=== PATIENT | female | born 2000 | race Caucasian/White ===

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

== ENCOUNTER 2022-09-01 16:45 | Emergency (ER) | payer BC, MEDICAID, SELFPAY ==
[2022-09-01 17:00] VITALS: BP 156/84; PULSE 90; RESP 18; TEMP 36.8; O2SAT 99
--- NOTE | 2022-09-01 18:33 | W.ED.GENAD ---
Discharge Plan Disposition Patient Disposition: HOME Condition: Stable Discharge Details Clinical Impression: Spotting during in first trimester Primary Care Provider: Kusum Lizarraga ED Provider: Addie Rayo Home Meds and New Rx's Prescriptions: Continued albuterol sulfate [ProAir HFA] 90 mcg/actuation Hfa Aerosol Inhaler 2 puff Inhalation PRN PRN Discharge Instructions Instructions: (ED) Additional Instructions: Your lab tests today are reassuring. 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 Drink plenty of fluids and get plenty of rest. Return immediately to the emergency department if you develop any worsening or new concerning symptoms. Discharge Data Discharge Date/Time-TO BE ENTERED AT DEPARTURE: 09/01/22 21:02 Discharge Physician: Addie Rayo Medical Decision Making 22yo F [id number] currently 10 weeks and 3 days presents for brown vaginal spotting today. She denies any fever, vomiting or abdominal pain. Blood pressure hypertensive at 156/84 on arrival. Remainder vitals within normal limits. Patient appears comfortable and nontoxic. She reports she had an ultrasound at [facility] in the last week and was told it was unremarkable. We will attempt to obtain this report. Her abdomen is soft and nontender. Considering her recent unremarkable ultrasound and lack of abdominal pain, history and presentation does not appear consistent with ectopic . Will obtain screening labs including beta quant and discussed with OB. Case discussed with Dr. Chatterjee -- as patient is not having heavy vaginal bleeding or abdominal pain and labs are reassuring, can follow-up with her OB at [facility]. Labs reviewed. Normal white blood cell count. Normal electrolytes. Beta quant [id number]. Urinalysis notes trace ketones but no evidence of infection. Bedside ultrasound bedside ultrasound noted intrauterine with normal heart rate. Able to obtain ultrasound from [facility] from 08/26 which noted a single viable fetus of 7 weeks and 5 days with estimated due date of 04/09/2023. Patient is requesting to go home. Her blood pressure is now within normal limits at 117/64. She denies any bleeding here. She is advised to drink plenty of fluids and rest. 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 Usual and customary return precautions given prior to discharge. Medical Records Medical records reviewed: Yes I reviewed the patient's medical records. Lab Data Lab results reviewed: Yes I reviewed the patient's lab results. Labs: Laboratory Tests Range/Units 09/01/22 09/01/22 09/01/22 18:36 18:36 18:36 WBC (4.4-10.8) 10^3/uL 9.28 RBC (3.93-5.22) 10^6/uL 4.55 Hgb (11.2-15.7) g/dL 13.9 Hct (36.0-46.0) % 41.4 MCV (80-95) fL 91 MCH (27.0-33.0) pg 30.5 MCHC (32.0-36.0) % 33.6 RDW (11.7-14.6) % 11.7 Plt Count (130-400) 10^3/uL 329 MPV (8.0-11.0) fL 9.6 Immature Gran % 0.2 Neutrophils % 67.4 Lymphocytes % 26.0 Monocytes % 5.0 Eosinophils % 1.2 Basophils % 0.2 Nucleated RBC % (0.0-0.3) % 0.0 Absolute Neutrophils (1.2-6.7) 10^3/uL 6.26 Absolute Lymphocytes (1.2-3.4) 10^3/uL 2.41 Absolute Monocytes (0.1-0.8) 10^3/uL 0.46 Absolute Eosinophils (0.0-0.7) 10^3/uL 0.11 Absolute Basophils (0.0-0.2) 10^3/uL 0.02 Sodium (136-145) mmol/L 137 Potassium (3.5-5.1) mmol/L 3.6 Chloride (98-107) mmol/L 101 Carbon Dioxide (21.0-32.0) mmol/L 26.2 Anion Gap (3-11) mmol/L 9.8 BUN (7-18) mg/dL 9 Creatinine (0.55-1.02) mg/dL 0.6 Est GFR (CKD-EPI 2020) (mL/min/1.73m2) 130.07 Glucose (74-106) mg/dL 76 Calcium (8.5-10.1) mg/dL 9.6 Total Bilirubin (0.2-1.0) mg/dL 0.4 AST (15-37) U/L 12 L ALT (14-59) U/L 29 Alkaline Phosphatase (46-116) U/L 36 L Total Protein (6.4-8.2) g/dL 8.3 H Albumin (3.4-5.0) g/dL 4.0 Beta HCG, Quant (1-3) mIU/mL 20558 H Urine Color (Yellow) Urine Clarity (Clear) Urine pH (5-8) Ur Specific [place] (1.005-1.025) Urine Protein (Negative) mg/dL Urine Ketones (Negative) mg/dL Urine Blood (Negative) Urine Nitrite (Negative) Urine Bilirubin (Negative) Urine Urobilinogen (Up TO 0.2) EU/dL Ur Leukocyte Esterase (Negative) Urine Glucose (Negative) mg/dL Patient ABO/Rh A Negative Range/Units 09/01/22 19:08 WBC (4.4-10.8) 10^3/uL RBC (3.93-5.22) 10^6/uL Hgb (11.2-15.7) g/dL Hct (36.0-46.0) % MCV (80-95) fL MCH (27.0-33.0) pg MCHC (32.0-36.0) % RDW (11.7-14.6) % Plt Count (130-400) 10^3/uL MPV (8.0-11.0) fL Immature Gran % Neutrophils % Lymphocytes % Monocytes % Eosinophils % Basophils % Nucleated RBC % (0.0-0.3) % Absolute Neutrophils (1.2-6.7) 10^3/uL Absolute Lymphocytes (1.2-3.4) 10^3/uL Absolute Monocytes (0.1-0.8) 10^3/uL Absolute Eosinophils (0.0-0.7) 10^3/uL Absolute Basophils (0.0-0.2) 10^3/uL Sodium (136-145) mmol/L Potassium (3.5-5.1) mmol/L Chloride (98-107) mmol/L Carbon Dioxide (21.0-32.0) mmol/L Anion Gap (3-11) mmol/L BUN (7-18) mg/dL Creatinine (0.55-1.02) mg/dL Est GFR (CKD-EPI 2020) (mL/min/1.73m2) Glucose (74-106) mg/dL Calcium (8.5-10.1) mg/dL Total Bilirubin (0.2-1.0) mg/dL AST (15-37) U/L ALT (14-59) U/L Alkaline Phosphatase (46-116) U/L Total Protein (6.4-8.2) g/dL Albumin (3.4-5.0) g/dL Beta HCG, Quant (1-3) mIU/mL Urine Color (Yellow) Yellow Urine Clarity (Clear) Clear Urine pH (5-8) 6.0 Ur Specific [place] (1.005-1.025) >= 1.030 H Urine Protein (Negative) mg/dL Negative Urine Ketones (Negative) mg/dL Trace H Urine Blood (Negative) Negative Urine Nitrite (Negative) Negative Urine Bilirubin (Negative) Negative Urine Urobilinogen (Up TO 0.2) EU/dL 0.2 Ur Leukocyte Esterase (Negative) Negative Urine Glucose (Negative) mg/dL Negative Patient ABO/Rh HPI General Mode of arrival: ambulatory. Date/Time Provider Initiated Documentation: 09/01/22 16:54. Limitations to Documentation: no limitations. Information obtained by: patient. HPI Narrative: Patient is a 22-year-old female G3, L0 at approximately 10 weeks and 3 days presents for brown vaginal spotting today. 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 She states she had an ultrasound at [facility] last week and was told everything is fine . She denies any fever, nausea, vomiting, abdominal pain or bright red vaginal bleeding. She states she still has been sexually active. She states she has had a previous miscarriage at 8 weeks and a molar treated with D&C at 10 weeks. She states she came to this hospital because she works for [employer] and did not want to see any of my clients there. Related Data Home Medications Medication Instructions Recorded Confirmed albuterol sulfate 90 mcg/actuation 2 puff inhalation PRN PRN 11/08/18 09/01/22 aerosol inhaler (ProAir HFA) Allergies Allergy/AdvReac Type Severity Reaction Status Date / Time peanut Allergy Severe Hives Unverified 09/01/22 17:06 clavulanic acid Allergy Unknown Unverified 09/01/22 17:06 [From Augmentin] amoxicillin Allergy Unverified 09/01/22 17:06 azithromycin [From Zithromax] Allergy Unverified 09/01/22 17:06 clindamycin Allergy Unverified 09/01/22 17:06 doxycycline Allergy Unverified 09/01/22 17:06 Penicillins Allergy Unverified 09/01/22 17:06 General Stated Complaint: [employer]ED[employer] MIMI: 3 Review of Systems All systems reviewed & are unremarkable except as noted in HPI and below Constitutional Constitutional: Reports as per HPI, Denies chills and Denies fever(s) Eyes Eyes: Denies blurry vision ENT Ears, Nose, Mouth, and Throat: Denies dizziness, Denies sore throat and Denies throat swelling Cardiovascular Cardiovascular: Denies chest pain and Denies dyspnea Respiratory Respiratory: Denies cough and Denies dyspnea Gastrointestinal Gastrointestinal: Denies abdominal pain, Denies diarrhea and Denies vomiting Genitourinary Genitourinary: Denies hematuria, Denies dysuria and Reports other (brown vaginal spotting) Musculoskeletal Musculoskeletal: Denies back pain and Denies numbness Integumentary/Breasts Skin/Breast: Denies lesions and Denies rash Neurologic Neurologic: Denies dizziness, Denies localized weakness and Denies numbness Allergic/Immunologic Allergic/Immunologic: Denies throat swelling PFSH All Active Problems (Updated 09/01/22 @ 20:53 by Addie Rayo DO) Spotting during in first trimester (Acute) Medical History (Updated 09/01/22 @ 20:53 by Addie Rayo DO) Molar Surgical History (Updated 09/01/22 @ 19:04 by Addie Rayo DO) History of dilation and curettage Social History Smoking/Tobacco Use Status: Never Smoking risk assessment performed?: Yes Alcohol Intake: never Drug use: Never Substance use type: does not use Do you feel safe in your relationship?: Yes Exam Const General: cooperative, healthy appearing and no acute distress Orientation: alert, awake and oriented x3 HENMT Head: normal to inspection Face and sinus: normal facial exam Eyes General: appearance normal, both eyes and all related structures Pupils: PERRL EOM: EOM intact bilaterally Neck Neck: normal visual inspection and No submandibular swelling Lymphatic: no lymphadenopathy noted Chest Chest: normal inspection of the chest and no tenderness Resp Effort & Inspection: normal respiratory effort and able to speak in complete sentences Auscultation: clear to auscultation bilaterally Cardio Rate: regular rate Rhythm: regular rhythm GI Inspection: normal to inspection and obesity Palpation: soft, not firm, not rigid and nontender Auscultation: hypoactive bowel sounds Skin General skin exam: no rashes or lesions noted Neuro General: patient alert, patient awake and patient oriented x3 Cognition: normal cognition Speech: speech normal Motor: muscle tone normal throughout Sensory Exam: no sensory deficits noted Extrem General: normal to inspection, full ROM, capillary refill normal, no calf tenderness bilaterally and no edema Psych Appearance: grossly normal Mental Status: mental status grossly normal Speech and Movement: speech and movement normal Affect: normal affect Course Vital Signs Vital signs: Vital Signs Temperature 98.2 F 09/01/22 17:00 Pulse 90 09/01/22 17:00 Respiratory Rate 18 09/01/22 17:00 Blood Pressure 156/84 H 09/01/22 17:00 Pulse Oximetry 99 09/01/22 17:00 Temperature 98.2 F 09/01/22 17:00 Temperature Source Tympanic 09/01/22 17:00 Pulse 90 09/01/22 17:00 Respiratory Rate 18 09/01/22 17:00 Respiratory Effort Non-Labored 09/01/22 17:03 Blood Pressure 156/84 H 09/01/22 17:00 Blood Pressure Position Sitting 09/01/22 17:00 Pulse Oximetry 99 09/01/22 17:00 Oxygen Delivery Method Room Air 09/01/22 17:00 Oxygen Flow Rate 0 09/01/22 17:00 Pain Level 0 09/01/22 17:03
[2022-09-01 18:49] LABS: Abs Immature Grans 0.02 10^3/uL (0.0-0.06); Absolute Basophil Count 0.02 10^3/uL (0.0-0.2); Absolute Eosinophil Count 0.11 10^3/uL (0.0-0.7); Absolute Lymphocyte Count 2.41 10^3/uL (1.2-3.4); Absolute Monocyte Count 0.46 10^3/uL (0.1-0.8); Absolute Neutrophil Count 6.26 10^3/uL (1.2-6.7); Basophils % 0.2; Eosinophils % 1.2; HCT 41.4 % (36.0-46.0); HGB 13.9 g/dL (11.2-15.7); Immature Grans % 0.2; MCH 30.5 pg (27.0-33.0); MCHC 33.6 % (32.0-36.0); MCV 91 fL (80-95); MPV 9.6 fL (8.0-11.0); Neutrophils % 67.4; Platelet Count 329 10^3/uL (130-400); RBC 4.55 10^6/uL (3.93-5.22); RDW 11.7 % (11.7-14.6); RDW-SD 39.2 fL; WBC 9.28 10^3/uL (4.4-10.8)
[2022-09-01 19:16] LABS: Bilirubin Negative (Negative); Blood Negative (Negative); Clarity Clear (Clear); Glucose Negative (Negative); Ketones Trace mg/dL (Negative); Leukocyte Esterase Negative (Negative); Nitrite Negative (Negative); Specific Gravity >= 1.030 (1.005-1.025); Urobilinogen 0.2 EU/dL (Up TO 0.2)
[2022-09-01 19:27] LABS: ALT 29 U/L (14-59); AST 12 U/L (15-37); Alkaline Phosphatase 36 U/L (46-116); Anion Gap 9.8 mmol/L (3-11); BUN 9 mg/dL (7-18); Bilirubin, Total 0.4 mg/dL (0.2-1.0); CO2 26.2 mmol/L (21.0-32.0); CREATININE 0.6 mg/dL (0.55-1.02); Calcium 9.6 mg/dL (8.5-10.1); Chloride 101 mmol/L (98-107); Estimated GFR 130.07 (mL/min/1.73m2); Glucose 76 mg/dL (74-106); Potassium 3.6 mmol/L (3.5-5.1); Sodium 137 mmol/L (136-145); Total Protein 8.3 g/dL (6.4-8.2)
[2022-09-01 19:28] LABS: HCG Quant, Pregnancy 84228 mIU/mL (1-3)
[2022-09-01 20:56] VITALS: BP 117/64; PULSE 97; RESP 12; O2SAT 96
== END 2022-09-01 21:02 | disposition home or self-care (01) ==
PROVIDERS: Emergency Provider Physician Assistant; PCP Physician Assistant Medical
DX: O26.851 Spotting complicating pregnancy, first trimester (principal); Z3A.10 10 weeks gestation of pregnancy
CPT/HCPCS: 80053; 86900; 86901; 99281; 81003; 84702; 85025